=== PATIENT | male | born 1940 | race Caucasian/White ===

== ENCOUNTER 2024-12-26 09:46 | Emergency (ER) | payer OTHER, SELFPAY ==
[2024-12-26 10:03] VITALS: BP 152/70; PULSE 80; RESP 16; TEMP 37; O2SAT 96; BMI 24.4
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
[2024-12-26] MEDS: LIDOCAINE 1% 20 ML 3 ML SUBCUT (12:06)
[2024-12-26] MEDS: BACITRACIN OINT 0.9 GM PCKT 1 APPLIC TOP (12:53)
[2024-12-26 13:13] VITALS: BP 137/65; PULSE 76; RESP 16; O2SAT 98
== END 2024-12-26 13:12 | disposition home or self-care (01) ==
PROVIDERS: Emergency Provider Physician Assistant
DX: L02.512 Cutaneous abscess of left hand (principal)
CPT/HCPCS: 10160; 73140; 87070; 87075; 87205; 99282; 99283